=== PATIENT | female | born 1975 | race Caucasian/White ===

== ENCOUNTER 2016-06-24 03:51 | Observation (INO) | payer MEDICARE, OTHER ==
[~2016-06-24] VITALS: Ht 157.5 cm; Wt 68.0 kg
[2016-06-24] VITALS (11 sets, daily range): BP systolic 112–133; BP diastolic 62–88; PULSE 79–89; RESP 18; TEMP 98.3; Ht 157.5 cm; Wt 68.0 kg
[2016-06-24 05:17] LABS: ADD SCAN DIFF NO
--- NOTE | 2016-06-24 05:32 | ERA ---
ER Documentation Chief Complaint Date/Time DATE: 06/24/16 TIME: 05:29 Chief Complaint L upper dialysis graft clogged HPI This is a 40-year-old female who is on hemodialysis and lives in [place] and is visiting. Her dialysis center set of dialysis here in [place] and she had dialysis on Friday. Patient went to dialysis today at 3:45 AM discovered her left AV shunt in her arm is completely clotted is sent her to the ER. She has no pain or swelling in the left upper extremity. She says she has had clotting of the shunt before and has had to have the clots removed. She is asymptomatic otherwise. ROS All systems reviewed and are negative except as per history of present illness. FmHx Family History: No coronary disease Physical Exam Vitals Vital Signs Date Time Temp Pulse Resp B/P Pulse Ox O2 Delivery O2 Flow Rate FiO2 06/24/16 04:00 98.3 85 16 147/84 99 Physical Exam Const: Well-developed, well-nourished Head: Atraumatic, normocephalic Eyes: Normal Conjunctiva, PERRLA, EOMI, normal sclera, no nystagmus ENT: Normal External Ears, Nose and Mouth, moist mucus membranes. Neck: Full range of motion. No meningismus, no lymphadenopathy. Resp: Clear to auscultation bilaterally, no wheezing, rhonchi, rales Cardio: Regular rate and rhythm, no murmurs, S1 S2 present Abd: Soft, non tender x 4, non distended. Normal bowel sounds, no guarding or rebound, no pulsitile abdominal masses or bruits Skin: No petechiae or rashes, no ecchymosis , no maculopapular rash Back: No midline or flank tenderness Ext: No cyanosis, or edema, FROM x 4, normal inspection, neurovascularly intact x 4, the left AV shunt has no palpable or auditory thrill Neur: Awake and alert, STR 5/5 x 4, sensation intact x 4, no focal findings, cerebellum intact Psych: Normal Mood and Affect Procedures/MDM Sonogram of the shunt demonstrates complete clot To admit the patient for clot removal and dialysis today if necessary Departure Diagnosis: Primary Impression: AV shunt thrombosis Qualified Code: T82.868A - AV shunt thrombosis, initial encounter Condition: Stable NI DAWSON DO June 24, 2016 05:32
[2016-06-24 05:34] LABS: BASOPHILS % 0.6 % (0.0-2.0); EOSINOPHILS # 0.3 10^3/ul (0.0-0.5); EOSINOPHILS % 6.5 % (0.0-7.0); HEMATOCRIT 27.6 % (37.0-47.0); HEMOGLOBIN 8.4 g/dl (12.0-16.0); LYMPHOCYTES # 1.6 10^3/ul (0.8-2.9); LYMPHOCYTES % 32.1 % (15.0-51.0); MEAN CORPUSCULAR HEMOGLOBIN 33.3 pg (29.0-33.0); MEAN CORPUSCULAR HGB CONC 30.4 g/dl (32.0-37.0); MEAN CORPUSCULAR VOLUME 109.5 fl (82.0-101.0); MEAN PLATELET VOLUME 11.7 fl (7.4-10.4); MONOCYTE # 0.3 10^3/ul (0.3-0.9); MONOCYTES % 6.3 % (0.0-11.0); NEUTROPHIL # 2.8 10^3/ul (1.6-7.5); NEUTROPHILS % 54.3 % (39.0-77.0); PLATELET COUNT 158 10^3/UL (140-415); RED BLOOD COUNT 2.52 10^6/ul (4.20-5.40); RED CELL DISTRIBUTION WIDTH 13.4 % (11.5-14.5); WHITE BLOOD COUNT 5.1 10^3/ul (4.8-10.8)
--- NOTE | 2016-06-24 05:53 | RADRPT ---
PROCEDURE: US Left Upper extremity Arteries. CLINICAL INDICATION: AV fistula evaluation. Pain and swelling. TECHNIQUE: Multiple longitudinal and transverse images of the left upper extremity arterial tree w ere obtained with vargas scale and color Doppler imaging. Images were reviewed on a high-resolution MI [employer] workstation. COMPARISON: No prior studies are available for comparison. FINDINGS: No flow is seen throughout the shunt. The cephalic vein appears occluded. There is proximal arteri al flow within the left axillary artery. IMPRESSION: 1. No flow was noted throughout the left brachiocephalic shunt, consistent with occlusion. 2. Cephalic vein appears occluded. 3. Proximal arterial flow is noted within the left axillary artery. RPTAT: HH .Leann Perez MD, MD Date Time Electronically viewed and signed by .Leann Perez MD, on 06/24/2016 05:53 .G/
[2016-06-24] MEDS ORDERED: ACETAMINOPHEN 325 MG TAB PO PRN (06:00)
[2016-06-24] MEDS ORDERED: ONDANSETRON 4 MG INJ IV PRN ×2 (06:00→08:00)
[2016-06-24 06:39] LABS: INR 0.96; PROTIME 12.8 Sec (12.2-14.2)
[2016-06-24 06:40] LABS: PARTIAL THROMBOPLASTIN TIME 29.7 Sec (25.0-35.0)
[2016-06-24 06:43] LABS: CREATININE 9.54 mg/dl (0.44-1.00)
[2016-06-24 06:44] LABS: CALCIUM 9.1 mg/dl (8.4-10.2)
[2016-06-24 06:52] LABS: POTASSIUM 6.6 mmol/L (3.5-5.1)
[2016-06-24] MEDS ORDERED: DEXTROSE 50% 50 ML SYRINGE IV STA (07:09)
[2016-06-24] MEDS ORDERED: INSULIN REGULAR 10 ML INJ IV ONE (07:30)
[2016-06-24] MEDS ORDERED: NA POLYST SULFON 15 GM/60 ML BTL PO ONE (07:30)
[2016-06-24] MEDS ORDERED: morphine 2 MG INJ IV PRN (08:00)
[2016-06-24] MEDS ORDERED: NACL 0.9% 3 ML SYG IV SCH (08:00)
[2016-06-24] MEDS ORDERED: CALCIUM GLUCONATE 10% 1 GM in SOD CHLORIDE 0.9% 100 ML IVPB ONE (08:00)
--- NOTE | 2016-06-24 12:03 | CONS ---
DATE OF ADMISSION: 06/24/2016 DATE OF CONSULTATION: 06/24/2016 REASON FOR CONSULTATION: 1. Hyperkalemia. 2. Clotted AV shunt. 3. End-stage renal disease. 4. On chronic hemodialysis. REFERRING PHYSICIAN: STACY RAYA MD TYPE OF CONSULTATION: Nephrology. HISTORY OF PRESENT ILLNESS: This is a 40-year-old female who has a past medical history of a small atrophic kidney, end-stage renal disease on hemodialysis Friday, Friday, Friday in [place]. The pat brandie has been visiting her family from [place] to here. She went to get her scheduled dialysis at the [facility] where she was noted to have a clotted AV shunt. The patient has no other acc ess for dialysis. She was sent to the [facility] Emergency Room, where she was no thien to have a hemoglobin of 8.4, but the potassium was 6.6. Patient already received Kayexalate in the emergency and treatment for hyperkalemia. At the time of my evaluation, she is currently hemody namically stable and getting IV fluids and vitals checked, but she denies any symptoms of chest pain , palpitations, headache, dizziness, blurry vision, constipation, diarrhea, dysuria, increased urina ry frequency. REVIEW OF SYSTEMS: Positive for generalized weakness, fatigue, lower extremity pain, swelling. Oth er review of systems has been obtained and is negative except what is mentioned in history of presen t illness. PAST MEDICAL HISTORY: End-stage renal disease on hemodialysis through the left upper extremity AV f istula. PAST SURGICAL HISTORY: History of left upper extremity AV fistula, history of a previous right uppe r chest PermCath dialysis catheter. SOCIAL HISTORY: No smoking, alcohol or recreational drug use. FAMILY HISTORY: Noncontributory. PHYSICAL EXAMINATION: VITAL SIGNS: Temperature 98.5, heart rate 74, respirations 18, blood pressure 125/85, saturation is 100% on room air. GENERAL: Awake, alert, in no distress. HEENT: Normal. Oropharynx clear. NECK: Supple, no JVD, no lymphadenopathy. LUNGS: Clear to auscultation. No crackles, no wheezes. HEART: S1, S2, with regular rhythm, no murmur. ABDOMEN: Soft, nontender, nondistended. Bowel sounds are present. EXTREMITIES: No clubbing, cyanosis, or edema. NEUROLOGICAL: Nonfocal, intact. PSYCHIATRIC: Appropriate affect and mood. LABORATORY DATA/DIAGNOSTIC IMAGIN. Sodium 136, potassium 6.6, chloride 92, bicarbonate 29, BUN 49, creatinine 9.5, glucose 93, calc ium 9.1, prothrombin time 12.8, PTT 29.7, INR 0.96. WBC 5.1, hemoglobin 8.4, platelet count 158. 2. Ultrasound of the left upper extremity shows no flow noted throughout the left brachiocephalic s vivar consistent with occlusion. The cephalic vein appears occluded. IMPRESSION: This is a 40-year-old female with: 1. Acute hyperkalemia, potassium 6.6 secondary to missed hemodialysis. 2. Acute fluid overload secondary to missed hemodialysis secondary to clotted left upper extremity arteriovenous shunt. 3. Left upper extremity arteriovenous shunt clotted. 4. End-stage renal disease on hemodialysis. Patient is from [place] on a regular schedule of dialysis Friday, Friday, Friday. 5. History of hypertension. PLAN: Thank you, Dr. Raya, for this consultation. 1. The patient has already received treatment for hyperkalemia in the emergency room. I will order a BMP to follow up on the patient's potassium. Her coagulation panel has been normal. 2. Interventional Radiology guided Wilbur catheter placement has been requested at this point. We will plan to do hemodialysis today with ultrafiltration 1 liter as tolerated. 3. I will contact vascular surgery, Dr. JANICE GONZALEZ, to do a declotting of her AV fistula and w ganesh will also use her AV fistula after declotting to make sure it works okay. 4. Continue the other medications. The patient currently is seen in the med/surg floor and she will be followed up along with the [facility] team and vascular surgery, Dr. Gonzalez. Total time spent in this patient's evaluation, making assessment and plan, communicating with the nu ing staff, explaining to the patient the need of emergent Wilbur hemodialysis catheter placement and the possible need of AV fistula declotting tomorrow by vascular surgery took more than 90 minute s. She understood and verbalized understanding. Dictated By: REGI RAYO MD, KP/ESTHELA Conf#: [id number] DID#: [id number]
[2016-06-24 13:02] LABS: CREATININE 10.34 mg/dl (0.44-1.00)
[2016-06-24 13:03] LABS: CALCIUM 9.1 mg/dl (8.4-10.2)
[2016-06-24 13:08] LABS: POTASSIUM 5.6 mmol/L (3.5-5.1)
[2016-06-24] MEDS ORDERED: HEPARIN 1000 UNITS/ML 10 ML INJ ONE (13:31)
--- NOTE | 2016-06-24 15:14 | RADRPT ---
PROCEDURE: PLACEMENT OF RIGHT INTERNAL JUGULAR VENOUS TEMPORARY DIALYSIS CATHETER . CLINICAL INDICATION: Renal failure. TECHNIQUE: Informed consent was obtained. The risks including bleeding and infection were explained to the pat ient. The patient understood and was willing to proceed. A procedural pause was performed. The haresh mae's name, date of , and procedure to be performed were verified. Limited sonography of the right neck was performed. Noted is a patent right internal jugular vein. The central line was inse rted with all elements of maximal sterile barrier technique. All of the following were used: head co vering, facial mask, sterile gown, sterile gloves, a large sterile sheet, hand hygiene, and 2% chlo rhexidine for cutaneous antisepsis. The right neck and anterior superior chest wall was prepped and draped in the usual sterile fashion. Using local anesthesia, sterile technique, and ultrasound guidance, a 20-gauge needle was advanced i nto the right internal jugular vein in the supraclavicular region. The 0.018 inch floppy tip guidew paulina was advanced through the needle into the superior vena cava with fluoroscopic guidance. A 5-Brayden nch sheath was advanced over the guidewire. The guidewire was removed and a 0.035 inch Amplatz wire was advanced into the superior vena cava, then the right atrium. Serial dilatation was performed t o 12 Setswana. The temporary dialysis catheter was then advanced over the guidewire such that the tip was placed in the right atrium. A 16 cm long, 11.5 Setswana Mahurkar temporary dialysis catheter was used. Tip position was confirmed in the right atrium with fluoroscopy. The two ports were each fl ushed with 1.5 ml of 1:1000 heparin. The catheter was secured to the skin with 2-0 monofilament. The site was dressed. The patient tolerated the procedure well. COMPARISON: None. FINDINGS: Ultrasound images were recorded and stored in the patient's medical record. Final radiographic images demonstrate the tip of the catheter in the upper right atrium. A total of 0.1 minutes of fluoroscopy time was used. The ultrasound images demonstrate the needle entering th e internal jugular vein. IMPRESSION: 1. Satisfactory insertion of right internal jugular vein temporary dialysis catheter with ultrasoun d and fluoroscopic guidance. RPTAT: QQ .Jose Whelan MD, MD Date Time Electronically viewed and signed by .Jose Whelan MD, MD on 06/24/2016 15:14 .R/
--- NOTE | 2016-06-24 15:46 | RADRPT ---
PROCEDURE: Ultrasound guidance for placement of needle in right internal jugular vein. CLINICAL INDICATION: Venous access. TECHNIQUE: Prior to the procedure, informed consent was obtained. Risks including bleeding, infection, and pneu mothorax were explained to the patient. The patient understood and was willing to proceed. A procedu ral pause was performed. The patient's name, date of , and procedure to be performed were verif ied. The central line was inserted with all elements of maximal sterile barrier technique. All of th e following were used: head covering, facial mask, sterile gown, sterile gloves, a large sterile she et, hand hygiene, and 2% chlorhexidine for cutaneous antisepsis. The right neck and anterior/super ior chest wall was prepped and draped in usual sterile fashion. Limited sonography of the right neck was then performed. Noted is a patent right internal jugular ve in. Ultrasound images were recorded and stored in the patient's medical record. Following the local injection of Xylocaine, the right internal jugular vein was punctured under sono graphic guidance with a 20-gauge needle through which a 0.018 inch floppy tip guidewire was advanced into the superior vena cava. The patient tolerated the procedure well. The remainder of the proce dure was performed and dictated under separate cover. COMPARISON: None. FINDINGS: The ultrasound images demonstrate a patent right internal jugular vein. The subsequent images demon strate the needle entering the right internal jugular vein. IMPRESSION: 1. Ultrasound guidance for a needle placement in right internal jugular vein. RPTAT: QQ .Jose Whelan MD, Date Time Electronically viewed and signed by .Jose Whelan MD, on 06/24/2016 15:46 .R/
[2016-06-24] MEDS: SEVELAMER 800 MG TAB PO SCH (18:51)
[2016-06-25 07:06] LABS: ADD SCAN DIFF NO
[2016-06-25 07:18] LABS: BASOPHIL # 0.1 10^3/ul (0.0-0.1); BASOPHILS % 0.7 % (0.0-2.0); EOSINOPHILS # 0.5 10^3/ul (0.0-0.5); EOSINOPHILS % 5.7 % (0.0-7.0); HEMATOCRIT 36.8 % (37.0-47.0); HEMOGLOBIN 11.5 g/dl (12.0-16.0); LYMPHOCYTES # 1.8 10^3/ul (0.8-2.9); LYMPHOCYTES % 22.6 % (15.0-51.0); MEAN CORPUSCULAR HEMOGLOBIN 33.8 pg (29.0-33.0); MEAN CORPUSCULAR HGB CONC 31.3 g/dl (32.0-37.0); MEAN CORPUSCULAR VOLUME 108.2 fl (82.0-101.0); MEAN PLATELET VOLUME 11.6 fl (7.4-10.4); MONOCYTE # 0.5 10^3/ul (0.3-0.9); MONOCYTES % 6.4 % (0.0-11.0); NEUTROPHIL # 5.2 10^3/ul (1.6-7.5); NEUTROPHILS % 64.4 % (39.0-77.0); PLATELET COUNT 214 10^3/UL (140-415); RED CELL DISTRIBUTION WIDTH 13.3 % (11.5-14.5); WHITE BLOOD COUNT 8.1 10^3/ul (4.8-10.8)
[2016-06-25 07:33] LABS: ALBUMIN 4.2 g/dl (3.3-4.9); ALBUMIN/GLOBULIN RATIO 1.16; BILIRUBIN,INDIRECT 0.1 mg/dl (0-1.1); BILIRUBIN,TOTAL 0.1 mg/dl (0.2-1.3); CALCIUM 8.7 mg/dl (8.4-10.2); CREATININE 7.91 mg/dl (0.44-1.00); MAGNESIUM 2.2 mg/dl (1.7-2.5); TOTAL PROTEIN 7.8 g/dl (6.1-8.1)
[2016-06-25] MEDS: SEVELAMER 800 MG TAB PO SCH ×2 (08:15→12:15)
[2016-06-25 08:21] VITALS: BP 96/56; RESP 18
[2016-06-25] MEDS ORDERED: ASPIRIN (EC) 81 MG TAB PO SCH (09:00)
[2016-06-25 10:00] VITALS: BP 111/71; PULSE 61
[2016-06-25] MEDS ORDERED: ASPI-664 PO (10:19)
[2016-06-25] MEDS ORDERED: SEVE800T10 PO (10:19)
[2016-06-25 10:30] VITALS: BP 110/69; PULSE 62
[2016-06-25 11:00] VITALS: BP 109/65; PULSE 63
[2016-06-25 11:30] VITALS: BP 105/61; PULSE 65
[2016-06-25 12:00] VITALS: BP_SYST 101; BP_SYST 107; BP_DIAS 69; BP_DIAS 76; PULSE 61; PULSE 65
--- NOTE | 2016-06-25 12:04 | HP ---
DATE OF ADMISSION: 06/24/2016 TYPE OF CONSULTATION: Vascular surgery. Dear Doctors: Ms. Gruber is a 40-year-old female with a history of end-stage renal disease who presented to [facility] during her travel from [place]. It seems that the patient was visiting and h ad undergone dialysis on Friday and had an occlusive dressing placed on her needle cannulation sit es. When she had removed her dressing late Friday night she noticed that there was no bruit and thr ill present. At this point, the patient brought herself to the emergency department for evaluation. It seems that her fistula has clotted upon our fistula ultrasound and subsequently patient underwe nt a right internal jugular vein Wilbur catheter placement. Discussing with the patient this morning, it seems the patient has a flight at 3 p.m. and she would like to not miss her flight and return home. We have discussed at length with the patient the need for dialysis and she did undergo dialysis and tolerated it well. She currently denies shortness of breath, chest pain, nausea, vomiting, fever or chills. The patient is involved with a vascular surg tani back in [place], [place] and she has spoken with their office in which she has an appointment for shaun for evaluation. REVIEW OF SYSTEMS: A 12-point review performed and negative except what is mentioned in the HPI. PAST MEDICAL HISTORY: Entails end-stage renal disease. PAST SURGICAL HISTORY: Left upper extremity AV fistula creation, right chest wall catheter, permane nt catheter in the past. SOCIAL HISTORY: Denies alcohol, tobacco or illicit drug use. FAMILY HISTORY: Hypertension. PHYSICAL EXAMINATION GENERAL: Alert and oriented x3, no apparent distress. HEENT: Normocephalic, atraumatic. PERRLA, EOMI. Mucosa moist. NECK: Supple. No carotid bruit. PULMONARY: Clear to auscultation bilaterally. No crackles. CARDIOVASCULAR: S1, S2 present. No murmurs. ABDOMEN: Soft, nontender, nondistended. Bowel sounds positive. EXTREMITIES: Lower extremity palpable femoral pulse, palpable pedal pulse. Motor, sensory intact. Cap refill 2 to 3 seconds. Upper extremities, palpable brachial pulse. Motor, sensory intact. Ca p refill 2 to 3 seconds. Left upper extremity AV fistula with surgical scars that are well healed. There is no bruit and thrill present and feels like a thrombosed graft. ASSESSMENT AND PLAN: 1. End-stage renal disease: It seems the patient's left upper extremity fistula has undergone mult iple revisions and currently has thrombosed. The patient would like everything to be done in order for her to make her arrangements for her flight back to [place] today. From our standpoint, the patien t did have dialysis yesterday and is doing well. We have discussed the findings with our nephrologi st and we have agreed for the patient to have her Wilbur catheter removed and she is to be followed up with her vascular surgeon education program specialist in [place] first thing tomorrow morning, for her to be sched uled for PermCath placement and a new fistula creation. She had mentioned that after speaking with her surgeon that her options of the left upper extremity have been limited and there is not much fu rther that can be done in terms of salvaging that upper arm fistula as it has been intervened on man y times in the past. 2. Discussed vascular optimization (BP meds, diet, nutrition, exercise, sugar control, antiplatelet s). 3. Discussed findings, plan and management with the patient and our primary service and they unders tand. Thank you for allowing us to partake in the care of your patient. Please call with any questions. Dictated By: JANICE DIAZ/ESTHELA Conf#: [id number] DID#: [id number]
--- NOTE | 2016-06-25 12:05 | CONS ---
Date/Time of Note Date/Time of Note DATE: 06/25/16 TIME: 12:01 Assessment/Plan Assessment/Plan Additional Assessment/Plan 1. Acute hyperkalemia, potassium 6.6 secondary to missed hemodialysis. 2. Acute fluid overload secondary to missed hemodialysis secondary to clotted left upper extremity arteriovenous shunt. 3. Left upper extremity arteriovenous shunt clotted. 4. End-stage renal disease on hemodialysis. Patient is from [place] on a regular schedule of dialysis Friday, Friday, Friday. 5. History of hypertension. PLAN: s/p HD yesterday through right IJ wilbur, K normal today BP stable pt dose not want to wait for thrombectomy of AVF and she also refused to get permacath today S/p Vascular surgery evaluation she wants to go back to [place] today and she has flight at 3 pm will plan for 2.5 hr HD today through Right IJ Wilbur, then d/c wilbur catheter then pt is advised to follow up with her own vascular surgery in [place]. she said she already sheduled appt [facility] tomorrow AM Consultation Date/Type/Reason Admit Date/Time June 24, 2016 at 05:33 Initial Consult Date June Type of Consultation: NEPHROLOGY Reason for Consultation Hyperkalemia, ESRD on HD, Fluid overload Referring Provider: STACY RAYA 24 HR Interval Summary Free Text/Dictation S/p Wilbur HD catheter placement yesterday, Had aHD yesterday , doing well, BP stable, Plan for HD today also Exam/Review of Systems Vital Signs Vitals Vital Signs Date Time Temp Pulse Resp B/P Pulse Ox O2 Delivery O2 Flow Rate FiO2 06/25/16 08:21 97.9 79 18 96/56 96 06/24/16 20:00 Room Air Intake and Output 06/24/16 06/24/16 06/25/16 15:00 23:00 07:00 Intake Total 400 ml 240 ml Output Total 4300 ml Balance -3900 ml 240 ml Exam GENERAL: Awake, alert, in no distress. HEENT: Normal. Oropharynx clear. NECK: Supple, no JVD, no lymphadenopathy. LUNGS: Clear to auscultation. No crackles, no wheezes. HEART: S1, S2, with regular rhythm, no murmur. ABDOMEN: Soft, nontender, nondistended. Bowel sounds are present. EXTREMITIES: No clubbing, cyanosis, or edema. BEN BOND has no bruit and no thrill NEUROLOGICAL: Nonfocal, intact. PSYCHIATRIC: Appropriate affect and mood. Results Result Diagram: 06/25/16 0625 06/25/16 0625 Results 24 hrs Laboratory Tests Test 06/25/16 06:25 White Blood Count 8.1 # Red Blood Count 3.40 #L Hemoglobin 11.5 #L Hematocrit 36.8 #L Mean Corpuscular Volume 108.2 H Mean Corpuscular Hemoglobin 33.8 H Mean Corpuscular Hemoglobin Concent 31.3 L Red Cell Distribution Width 13.3 Platelet Count 214 # Mean Platelet Volume 11.6 H Neutrophils % 64.4 Lymphocytes % 22.6 Monocytes % 6.4 Eosinophils % 5.7 Basophils % 0.7 Nucleated Red Blood Cells % 0.0 Neutrophils # 5.2 Lymphocytes # 1.8 Monocytes # 0.5 Eosinophils # 0.5 Basophils # 0.1 Nucleated Red Blood Cells # 0.0 Sodium Level 136 Potassium Level 5.0 Chloride Level 101 Carbon Dioxide Level 27 Anion Gap 13 # Blood Urea Nitrogen 33 #H Creatinine 7.91 #H Glucose Level 97 Calcium Level 8.7 Phosphorus Level 5.0 H Magnesium Level 2.2 Total Bilirubin 0.1 L Direct Bilirubin 0.00 Indirect Bilirubin 0.1 Aspartate Amino Transf (AST/SGOT) 28 Alanine Aminotransferase (ALT/SGPT) 15 Alkaline Phosphatase 57 Total Protein 7.8 Albumin 4.2 Globulin 3.60 H Albumin/Globulin Ratio 1.16 Medications Medications Current Medications Ondansetron HCl (Zofran Inj) 4 mg Q6H PRN IV NAUSEA AND/OR VOMITING; Start 06/24 at 08:00 Morphine Sulfate (morphine) 2 mg Q4H PRN IV SEVERE PAIN LEVEL 7-10; Start at 08:00 Aspirin (Halfprin) 81 mg DAILY PO ; Start 06/25/16 at 09:00 REGI RAYO MD June 25, 2016 12:05
--- NOTE | 2016-06-25 19:26 | DS ---
DATE OF ADMISSION: 06/24/2016 DATE OF DISCHARGE: 06/25/2016 PRESENTING COMPLAINT: The patient came with inability to undergo dialysis because of left AV shunt in her arm is completely clotted. CONSULTS ON THE CASE: 1. Dr. Luis Sheikh for nephrology. 2. Dr. Prakash Hadley for vascular surgery. INTERVENTIONS: 1. The patient had an upper extremity arterial study, 06/24/2016. It showed no flow throughout the left brachiocephalic shunt consistent with occlusion. Cephalic vein appears occluded and proximal arterial flow is noted with a left axillary artery. 2. Then, the patient underwent insertion of a temporary right internal jugular dialysis catheter sa tisfactorily, 06/24/2016, after which the patient underwent hemodialysis, 06/24/2016, as well as tod ay 06/25/2016. HOSPITALIZATION COURSE: Full details are available in chart for review. In summary, this patient h ad a very short hospitalization stay. She came in because she could not get dialysis on her regular routine because her AV shunt was completely occluded. She was admitted. She was also found to be hyperkalemic and she had emergent temporary line placed, through which she got dialysis twice. She was seen by vascular surgery for probable declotting of her fistula. However, the patient has a fli ght today back to [place] and it was felt that undergoing such a procedure and then getting on a plane to travel would not be safe, and also having a temporary dialysis access in place and getting on the plane as well was considered unsafe. So, the decision was made by the patient and the [facility] with her funeral arranger in agreement, to remove the temporary access and be deferred declotting t o patient's own primary funeral arranger and vascular surgeons in [place] where she was returning to. She agreed with this plan. She was dialyzed for a second time today, after which she was discharged in stable condition. DISCHARGE MEDICATIONS: 1. Aspirin. 2. As well as Renagel 3 times a day. DISCHARGE CONDITION: Stable. DIET: Renal. ACTIVITY: As tolerated. FOLLOWUP: Emergent followup with her own funeral arranger tomorrow as well as her vascular surgeon over in [place]. Overall time spent on discharge coordination, speaking with consultants, and speaking, with patient in addition ____ today has been more than 45 minutes. For clarification and further information, pl ease review the patient's chart and my orders. Of note is that patient does have a history of high blood pressure and she tells me that regarding t he cause of her renal failure, as she was found to have small kidneys with the left being smaller th an the right and it was thought that her kidney was also only functioning one, which eventually fail ed after some time. Dictated By: STACY RAYA MD BA/NTS Conf#: [id number] DID#: [id number] CC: SADIE MCKEON MD;*EndCC*
== END 2016-06-25 13:25 | disposition home or self-care (01) ==
LOC: E/R 03:51 → MS2 05:33
PROVIDERS: ADMIT Internal Medicine; ATTEND Internal Medicine
DX: T82.898A Other specified complication of vascular prosthetic devices, implants and grafts, initial encounter (principal); Y84.1 Kidney dialysis as the cause of abnormal reaction of the patient, or of later complication, without mention of misadventure at the time of the procedure; Y92.89 Other specified places as the place of occurrence of the external cause; I12.0 Hypertensive chronic kidney disease with stage 5 chronic kidney disease or end stage renal disease; N18.6 End stage renal disease; Z79.82 Long term (current) use of aspirin; E87.5 Hyperkalemia
CPT/HCPCS: 36415; 36556; 76942; 80048; 80053; 82962; 83735; 84100; 84132; 85025; 85610; 85730; 87081; 90935; 93931; 96374; 96375; 99285; C1752; G0378; J0610; J1644; J1815